=== PATIENT | female | born 1970 ===

== ENCOUNTER 2017-07-12 00:27 | Emergency (ER) | payer SELFPAY ==
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
[2017-07-12 02:31] LABS: CHLORIDE,CL 103 mmol/L (98-110); SODIUM,NA 135 mmol/L (136-146)
[2017-07-12 03:14] VITALS: BP 125/78
--- NOTE | 2017-07-12 16:58 | CR ---
EXAM DATE: 07/12/17 PATIENT'S AGE: 47 Patient: ERIKA GONGORA Facility: [place], [place] Site . Site : 1970 Study: XRay Chest [id number]/16/2018 2:15:55 AM Ordering Physician: Doctor Bradford Final Report: INDICATION: Shortness of breath for a week with increasing swelling in hands, feet. TECHNIQUE: Chest radiograph 1 view COMPARISON: 01/23/2016 FINDINGS: Moderate degradation of image quality noted due to body habitus. Mediastinum: The heart silhouette is normal in size and morphology. The mediastinum is normal in appearance. Lungs: Mild bibasilar subsegmental atelectasis is noted. No sign of pleural effusion seen. No pneumothorax is identified. Bones and soft tissue: Unremarkable for age. IMPRESSION: 1. Mild bibasilar subsegmental atelectasis is noted. Dictated by: Emiliano Moralez MD @ 07/12/2017 02:17:36 (Electronic Signature) Report Signed by Proxy. SALMA
== END 2017-07-12 03:00 | disposition home or self-care (01) ==
LOC: MW.ED 00:27
DX: N30.00 Acute cystitis without hematuria (principal); F17.210 Nicotine dependence, cigarettes, uncomplicated; I10 Essential (primary) hypertension; I25.10 Atherosclerotic heart disease of native coronary artery without angina pectoris; E78.00 Pure hypercholesterolemia, unspecified; E11.9 Type 2 diabetes mellitus without complications; Z79.84 Long term (current) use of oral hypoglycemic drugs; Z79.02 Long term (current) use of antithrombotics/antiplatelets; Z79.899 Other long term (current) drug therapy; Z88.8 Allergy status to other drugs, medicaments and biological substances; Z95.5 Presence of coronary angioplasty implant and graft
CPT/HCPCS: 36415; 71045; 71045-26; 80053; 81001; 83880; 84484; 85025; 87086; 87088; 87186; 87804; 93005; 99284; 99285-25

== ENCOUNTER 2019-01-28 20:29 | Emergency (ER) | payer MEDICAID, OTHER ==
[2019-01-28] MEDS: Sodium Chloride 0.9% 1,000 ML IV ONE (20:54)
--- NOTE | 2019-01-28 21:02 | CT ---
INDICATION: Stroke TECHNIQUE: CT head without contrast. COMPARISON: None FINDINGS: CSF spaces: Within normal limits for age. Brain parenchyma: The marshall-white differentiation is normal. No sign of mass, hemorrhage, or midline shift. Skull base and calvarium: The visualized paranasal sinuses and mastoid air cells demonstrate no acute or significant findings. The visualized orbits are grossly unremarkable. No skull fractures. IMPRESSION: Unremarkable noncontrast head CT. Dictated by Enrique Marx MD @ 01/28/2019 8:59:39 PM Please note that all CT scans at this facility use dose modulation, iterative reconstruction, and/or weight-based dosing when appropriate to reduce radiation dose to as low as reasonably achievable. Dictated by: Enrique Marx MD @ 01/28/2019 20:59:43 (Electronically Signed)
--- NOTE | 2019-01-28 21:04 | CR ---
INDICATION: Stroke code TECHNIQUE: Chest 1 view. COMPARISON: None. FINDINGS: Cardiovascular and mediastinum: Heart size and vasculature are normal in caliber and appearance. Mediastinum is within normal limits. Lungs and pleural space: Lungs are clear. No sign of infiltrate or mass. No sign of pleural effusion. No pneumothorax. Bones and soft tissues: No significant findings. IMPRESSION: Unremarkable chest. Dictated by: Enrique Marx MD @ 01/28/2019 21:03:25 (Electronically Signed)
[2019-01-28 21:52] LABS: BLOOD UREA NITROGEN,BUN 23 mg/dL (7.0-18.0); CARBON DIOXIDE,CO2 23.6 mmol/L (21.0-32.0); CHLORIDE,CL 103 mmol/L (98-107); GLUCOSE RANDOM 327 mg/dL (74-106); POTASSIUM,K 4.6 mmol/L (3.5-5.1); SODIUM,NA 139 mmol/L (136-145)
[2019-01-28] MEDS: Insulin Regular, Human 100 Units/ML 10 ML Vial IVPUSH ONE (22:24)
[2019-01-28 22:33] VITALS: BP 114/58
[2019-01-28 22:50] LABS: HEMOGLOBIN A1C 9.4 % (4.5-6.2)
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
== END 2019-01-28 23:21 | disposition home or self-care (01) ==
LOC: MW.ED 20:29
DX: E11.65 Type 2 diabetes mellitus with hyperglycemia (principal); E86.0 Dehydration; I10 Essential (primary) hypertension; I25.2 Old myocardial infarction; F17.210 Nicotine dependence, cigarettes, uncomplicated; Z95.5 Presence of coronary angioplasty implant and graft; E66.9 Obesity, unspecified; Z79.899 Other long term (current) drug therapy; Z98.890 Other specified postprocedural states; Z90.49 Acquired absence of other specified parts of digestive tract; Z98.51 Tubal ligation status
CPT/HCPCS: 70450; 71045; 80053; 82962; 83036; 84484; 85025; 85610; 93005; 96360; 99285; J7040; J1815-GY

== ENCOUNTER 2021-08-19 07:26 | Emergency (ER) | payer MEDICAID, OTHER ==
[2021-08-19 09:19] VITALS: BP 138/78; PULSE 78
== END 2021-08-19 08:40 | disposition home or self-care (01) ==
LOC: MW.ED 07:26
DX: R30.0 Dysuria (principal); I10 Essential (primary) hypertension; E11.9 Type 2 diabetes mellitus without complications; E66.9 Obesity, unspecified; E78.00 Pure hypercholesterolemia, unspecified; Z88.6 Allergy status to analgesic agent; Z88.8 Allergy status to other drugs, medicaments and biological substances; Z79.899 Other long term (current) drug therapy; Z68.42 Body mass index [BMI] 45.0-49.9, adult
CPT/HCPCS: 81003; 99282; 99284-25

== ENCOUNTER 2023-01-02 22:15 | Emergency (ER) | payer MEDICAID ==
[2023-01-02] MEDS ORDERED: Sodium Chloride 0.9% 10 ML Syringe FLUSH PRN (22:42)
[2023-01-02] MEDS ORDERED: Sodium Chloride 0.9% 2.5 ML Syringe FLUSH PRN (22:42)
[2023-01-02 22:47] LABS: BASOPHILS PERCENT AUTO 0.4 % (0.0-1.5); EOSINOPHILS ABSOLUTE AUTO 0.2 K/uL (0.0-0.7); EOSINOPHILS PERCENT AUTO 2.8 % (0.0-7.0); HEMATOCRIT 40.8 % (36.0-46.0); HEMOGLOBIN 13.4 g/dL (12.0-16.0); LYMPHOCYTES PERCENT AUTO 45.1 % (16.0-40.0); MEAN CORPUSCULAR HEMOGLOBIN 30.5 pg (27.0-32.0); MEAN CORPUSCULAR HGB CONC 32.8 g/dL (31.0-37.0); MEAN CORPUSCULAR VOLUME 92.9 fL (80.0-98.0); MONOCYTES ABSOLUTE AUTO 0.4 K/uL (0.0-0.8); MONOCYTES PERCENT AUTO 6.3 % (0.0-15.0); NEUTROPHILS ABSOLUTE AUTO 3.1 K/uL (1.4-5.7); NEUTROPHILS PERCENT AUTO 45.4 % (48.0-80.0); NRBC ABSOLUTE 0 K/uL; PLATELET COUNT,PLT 177 K/uL (150-400); RED BLOOD CELL COUNT 4.39 M/uL (4.30-5.90); WHITE BLOOD CELL COUNT,WBC 6.72 K/uL (4.0-11.0)
[2023-01-02 22:54] LABS: INR 0.97 (0.86-1.11)
[2023-01-02 23:00] LABS: A/G RATIO 0.9 (0.9-1.6); ALBUMIN 3.4 g/dL (3.4-5.0); BILIRUBIN TOTAL 0.3 mg/dL (0.2-1.0); CALCIUM 8.9 mg/dL (8.5-10.1); CARBON DIOXIDE,CO2 27.8 mmol/L (21.0-32.0); CREATININE 1.1 mg/dL (0.6-1.0); EST CRCL DRUG DOSING (CG) 61.1 mL/min; POTASSIUM,K 4.1 mmol/L (3.5-5.1); PROTEIN TOTAL,TP 7.1 g/dL (6.4-8.2)
[2023-01-03] MEDS ORDERED: Iopamidol 755 MG/ML 500 ML Multipack Bottle IVPUSH ONE (00:10)
[2023-01-03 02:38] VITALS: BP 131/85; PULSE 72
== END 2023-01-03 02:37 | disposition home or self-care (01) ==
LOC: MW.ED 22:15
DX: R07.89 Other chest pain (principal); E11.65 Type 2 diabetes mellitus with hyperglycemia; I10 Essential (primary) hypertension; E78.00 Pure hypercholesterolemia, unspecified; I25.2 Old myocardial infarction; E66.9 Obesity, unspecified; Z68.41 Body mass index [BMI] 40.0-44.9, adult; Z88.6 Allergy status to analgesic agent; Z88.8 Allergy status to other drugs, medicaments and biological substances; Z79.84 Long term (current) use of oral hypoglycemic drugs; Z79.899 Other long term (current) drug therapy
CPT/HCPCS: 36415; 71045; 74160; 80053; 83690; 83880; 84484; 85025; 85610; 93005; 99285; J3490; Q9967; 93010; 99284